=== PATIENT | female | born 1930 | race Caucasian/White ===

== ENCOUNTER 2017-10-02 18:04 | Emergency (ER) | payer OTHER ==
[~2017-10-02] VITALS: Ht 152.4 cm; Wt 82.1 kg
[~2017-10-02 18:04] MED LIST: AMI200 PO; FLOEARD RIGHT EYE; LEVA1.25 NEB; LIP20 PO; PRO40 PO
[2017-10-02 18:05] VITALS: BP_SYST 159
[2017-10-02 18:50] VITALS: BP_SYST 159
== END 2017-10-02 18:50 | disposition home or self-care (01) ==
LOC: SED 18:04
DX: L30.4 Erythema intertrigo (principal); I48.91 Unspecified atrial fibrillation; J44.9 Chronic obstructive pulmonary disease, unspecified; K21.9 Gastro-esophageal reflux disease without esophagitis; I10 Essential (primary) hypertension; E78.00 Pure hypercholesterolemia, unspecified; Z79.899 Other long term (current) drug therapy
CPT/HCPCS: 99283

== ENCOUNTER 2019-07-14 09:05 | Inpatient (IN) | payer OTHER ==
[~2019-07-14] VITALS: Ht 152.4 cm; Wt 70.3 kg
[~2019-07-14 09:05] MED LIST changes: -LEVA1.25 NEB; +LEVA1.2527 NEB
[2019-07-14 09:12] VITALS: BP_SYST 108
[2019-07-14] MEDS ORDERED: ONDANSETRON HCL 4 MG/2 ML VIAL IVP ONE (09:30)
[2019-07-14] MEDS ORDERED: ALBUTEROL SULFATE 0.083% 2.5 MG/3 ML VIAL.NEB INH ONE (09:30)
[2019-07-14] MEDS ORDERED: IPRATROPIUM BROM 0.5 MG/2.5 ML VIAL.NEB (ATROVENT) INH ONE (09:30)
[2019-07-14] MEDS ORDERED: NACL 0.9% 1,000 ML IV ONE (09:30)
[2019-07-14 10:28] LABS: BASOPHILS % (AUTO) 0.4 % (0.0-2.0); EOSINOPHILS % (AUTO) 0.3 % (0.0-4.0); HEMATOCRIT 44.5 % (36-48); HEMOGLOBIN 14.6 g/dL (12.0-16.0); LYMPHOCYTES # (AUTO) 0.8 K/uL (1.0-5.5); LYMPHOCYTES % (AUTO) 12.2 % (20.5-51.5); MEAN CORPUSCULAR HEMOGLOBIN 30 pg (27-31); MEAN CORPUSCULAR HGB CONC 33 % (32-36); MEAN CORPUSCULAR VOLUME 91 fL (79.0-98.0); MONOCYTES # (AUTO) 0.7 K/uL (0.0-1.0); MONOCYTES % (AUTO) 10.4 % (1.7-9.3); NEUTROPHILS # (AUTO) 5.3 K/uL (1.8-7.7); NEUTROPHILS % (AUTO) 76.7 % (40.0-70.0); PLATELET COUNT (AUTO) 160 K/uL (130-430); RED BLOOD CELL COUNT(AUTO) 4.88 MIL/uL (4.2-6.2); RED CELL DISTRIBUTION WIDTH 13.9 % (9.0-15.0); WHITE BLOOD COUNT (AUTO) 6.9 K/uL (4.8-10.8)
[2019-07-14 10:43] LABS: ANION GAP 10 (5-15); CALCIUM 8.2 mg/dL (8.4-11.0); CHLORIDE 96 mmol/L (98-107); CREATININE 1.15 mg/dL (0.55-1.30); GLUCOSE 71 mg/dL (70-99); POTASSIUM 4.2 mmol/L (3.5-5.1); SODIUM SERUM 132 mmol/L (136-145); UREA NITROGEN, BLOOD 20 mg/dL (8-21)
[2019-07-14 10:48] LABS: ALANINE AMINOTRANSFERASE 17 U/L (12-78); ALBUMIN 2.9 g/dL (3.4-4.8); ASPARTATE AMINOTRANSFERASE 12 U/L (10-37); TOTAL BILIRUBIN 0.7 mg/dL (0.0-1.0)
[2019-07-14 11:52] LABS: BILIRUBIN,URINE NEGATIVE (NEGATIVE); BLOOD, URINE NEGATIVE (NEGATIVE); CLARITY/URINE CLEAR (CLEAR); COLOR,URINE YELLOW (YELLOW); GLUCOSE,URINE NEGATIVE (NEGATIVE); KETONES,URINE NEGATIVE (NEGATIVE); LEUKOCYTE ESTERASE ,URINE NEGATIVE (NEGATIVE); NITRITE, URINE NEGATIVE (NEGATIVE); PROTEIN URINE NEGATIVE (NEGATIVE); UROBILINOGEN,URINE 0.2 (0.2-1.0)
[2019-07-14] MEDS ORDERED: OSELTAMIVIR PHOSPHATE 75 MG CAPSULE PO ONE (12:45)
[2019-07-14 14:00] VITALS: BP_SYST 170
[2019-07-14 17:30] VITALS: BP_SYST 156
[2019-07-14] MEDS ORDERED: ALBUTEROL SULFATE 0.083% 2.5 MG/3 ML VIAL.NEB INH PRN (19:00)
[2019-07-14] MEDS ORDERED: IPRATROPIUM BROM 0.5 MG/2.5 ML VIAL.NEB (ATROVENT) INH PRN (19:00)
[2019-07-14] MEDS ORDERED: AMIODARONE HCL 200 MG TABLET PO ONE (19:00)
[2019-07-14] MEDS: ALBUTEROL SULFATE 0.083% 2.5 MG/3 ML VIAL.NEB INH SCH (19:22)
[2019-07-14] MEDS: IPRATROPIUM BROM 0.5 MG/2.5 ML VIAL.NEB (ATROVENT) INH SCH (19:22)
[2019-07-14 20:00] VITALS: BP_SYST 149
[2019-07-14] MEDS: cefTRIAXone 1 GM in D5W 50 ML IV SCH (20:14)
[2019-07-14] MEDS: ATORVASTATIN 20 MG TABLET PO SCH (20:45)
[2019-07-14] MEDS: AZITHROMYCIN 500 MG in NS 250 ML IV SCH (20:45)
[2019-07-14] MEDS: OSELTAMIVIR PHOSPHATE 75 MG CAPSULE PO SCH (20:45)
[2019-07-14 20:47] VITALS: BP_SYST 146
[2019-07-14] MEDS: HEPARIN SODIUM,PORCINE 5000 UNITS/ML VIAL SUBCUT SCH (20:47)
[2019-07-14] MEDS ORDERED: ASPI-1153 PO (22:23)
[2019-07-14] MEDS ORDERED: LOSA50TA3 PO (22:23)
[2019-07-14] MEDS ORDERED: PENT400T17 PO (22:23)
[2019-07-15 00:41] VITALS: BP_SYST 149
[2019-07-15] MEDS: IPRATROPIUM BROM 0.5 MG/2.5 ML VIAL.NEB (ATROVENT) INH SCH ×4 (01:00→19:20)
[2019-07-15] MEDS: ALBUTEROL SULFATE 0.083% 2.5 MG/3 ML VIAL.NEB INH SCH ×4 (01:00→19:20)
[2019-07-15 07:55] VITALS: BP_SYST 125
[2019-07-15] MEDS ORDERED: PANTOPRAZOLE SODIUM 40 MG TAB PO SCH (09:00)
[2019-07-15] MEDS: PANTOPRAZOLE SODIUM 40 MG TAB PO SCH (09:33)
[2019-07-15] MEDS: OSELTAMIVIR PHOSPHATE 75 MG CAPSULE PO SCH ×2 (09:33→22:57)
[2019-07-15] MEDS: AMIODARONE HCL 200 MG TABLET PO SCH (09:34)
[2019-07-15] MEDS: HEPARIN SODIUM,PORCINE 5000 UNITS/ML VIAL SUBCUT SCH ×2 (09:36→22:59)
[2019-07-15 12:00] VITALS: BP_SYST 148
[2019-07-15] MEDS: ACETAMINOPHEN 325 MG TABLET PO PRN ×3 (12:08→23:01)
[2019-07-15 16:00] VITALS: BP_SYST 142
[2019-07-15] MEDS: cefTRIAXone 1 GM in D5W 50 ML IV SCH (18:31)
[2019-07-15 20:05] VITALS: BP_SYST 144
[2019-07-15] MEDS: AZITHROMYCIN 500 MG in NS 250 ML IV SCH (22:57)
[2019-07-15] MEDS: ATORVASTATIN 20 MG TABLET PO SCH (22:57)
[2019-07-16 01:08] VITALS: BP_SYST 162
[2019-07-16] MEDS: ALBUTEROL SULFATE 0.083% 2.5 MG/3 ML VIAL.NEB INH SCH ×4 (02:08→19:55)
[2019-07-16] MEDS: IPRATROPIUM BROM 0.5 MG/2.5 ML VIAL.NEB (ATROVENT) INH SCH ×4 (02:08→19:55)
[2019-07-16 07:22] LABS: ANION GAP 5 (5-15); CALCIUM 8.6 mg/dL (8.4-11.0); CHLORIDE 101 mmol/L (98-107); CREATININE 1.07 mg/dL (0.55-1.30); GLUCOSE 79 mg/dL (70-99); POTASSIUM 3.6 mmol/L (3.5-5.1); SODIUM SERUM 137 mmol/L (136-145); UREA NITROGEN, BLOOD 15 mg/dL (8-21)
[2019-07-16 07:26] LABS: BASOPHILS % (AUTO) 0.5 % (0.0-2.0); EOSINOPHILS # (AUTO) 0.1 K/uL (0.0-0.4); EOSINOPHILS % (AUTO) 1.8 % (0.0-4.0); HEMATOCRIT 43.6 % (36-48); HEMOGLOBIN 14.5 g/dL (12.0-16.0); LYMPHOCYTES # (AUTO) 0.7 K/uL (1.0-5.5); LYMPHOCYTES % (AUTO) 20.4 % (20.5-51.5); MEAN CORPUSCULAR HEMOGLOBIN 30 pg (27-31); MEAN CORPUSCULAR HGB CONC 33 % (32-36); MEAN CORPUSCULAR VOLUME 91 fL (79.0-98.0); MONOCYTES # (AUTO) 0.6 K/uL (0.0-1.0); NEUTROPHILS # (AUTO) 2.1 K/uL (1.8-7.7); NEUTROPHILS % (AUTO) 60.3 % (40.0-70.0); PLATELET COUNT (AUTO) 160 K/uL (130-430); RED CELL DISTRIBUTION WIDTH 13.9 % (9.0-15.0); WHITE BLOOD COUNT (AUTO) 3.5 K/uL (4.8-10.8)
[2019-07-16 07:46] VITALS: BP_SYST 162
[2019-07-16] MEDS: OSELTAMIVIR PHOSPHATE 75 MG CAPSULE PO SCH ×2 (09:12→20:35)
[2019-07-16] MEDS: AMIODARONE HCL 200 MG TABLET PO SCH (09:13)
[2019-07-16] MEDS: PANTOPRAZOLE SODIUM 40 MG TAB PO SCH (09:13)
[2019-07-16] MEDS: HEPARIN SODIUM,PORCINE 5000 UNITS/ML VIAL SUBCUT SCH ×2 (09:15→20:38)
[2019-07-16] MEDS ORDERED: HYDROcodone/ACETAMIN 5-325 MG TAB (NORCO/ VICODIN) PO PRN (12:00)
[2019-07-16 12:26] VITALS: BP_SYST 148
[2019-07-16] MEDS: ONDANSETRON HCL 4 MG/2 ML VIAL IVP PRN (14:25)
[2019-07-16 16:30] VITALS: BP_SYST 149
[2019-07-16] MEDS: cefTRIAXone 1 GM in D5W 50 ML IV SCH (18:32)
[2019-07-16 20:32] VITALS: BP_SYST 149
[2019-07-16] MEDS: AZITHROMYCIN 500 MG in NS 250 ML IV SCH (20:34)
[2019-07-16] MEDS: ATORVASTATIN 20 MG TABLET PO SCH (20:35)
[2019-07-16] MEDS: ACETAMINOPHEN 325 MG TABLET PO PRN (20:35)
[2019-07-17] MEDS: ALBUTEROL SULFATE 0.083% 2.5 MG/3 ML VIAL.NEB INH SCH ×4 (01:15→19:43)
[2019-07-17] MEDS: IPRATROPIUM BROM 0.5 MG/2.5 ML VIAL.NEB (ATROVENT) INH SCH ×4 (01:15→19:43)
[2019-07-17 02:30] VITALS: BP_SYST 145
[2019-07-17 07:13] VITALS: BP_SYST 197
[2019-07-17 07:26] LABS: BASOPHILS % (AUTO) 0.7 % (0.0-2.0); EOSINOPHILS # (AUTO) 0.1 K/uL (0.0-0.4); HEMATOCRIT 42.4 % (36-48); HEMOGLOBIN 14.3 g/dL (12.0-16.0); LYMPHOCYTES % (AUTO) 27.8 % (20.5-51.5); MEAN CORPUSCULAR HEMOGLOBIN 30 pg (27-31); MEAN CORPUSCULAR HGB CONC 34 % (32-36); MEAN CORPUSCULAR VOLUME 90 fL (79.0-98.0); MONOCYTES # (AUTO) 0.6 K/uL (0.0-1.0); MONOCYTES % (AUTO) 15.3 % (1.7-9.3); NEUTROPHILS % (AUTO) 53.2 % (40.0-70.0); PLATELET COUNT (AUTO) 158 K/uL (130-430); RED CELL DISTRIBUTION WIDTH 13.8 % (9.0-15.0); WHITE BLOOD COUNT (AUTO) 3.7 K/uL (4.8-10.8)
[2019-07-17 07:39] LABS: ALANINE AMINOTRANSFERASE 21 U/L (12-78); ALBUMIN 2.8 g/dL (3.4-4.8); ANION GAP 7 (5-15); ASPARTATE AMINOTRANSFERASE 11 U/L (10-37); CALCIUM 8.2 mg/dL (8.4-11.0); CHLORIDE 96 mmol/L (98-107); CREATININE 0.94 mg/dL (0.55-1.30); GLUCOSE 81 mg/dL (70-99); POTASSIUM 3.4 mmol/L (3.5-5.1); SODIUM SERUM 129 mmol/L (136-145); TOTAL BILIRUBIN 0.4 mg/dL (0.0-1.0); UREA NITROGEN, BLOOD 17 mg/dL (8-21)
[2019-07-17 07:54] VITALS: BP_SYST 197
[2019-07-17] MEDS: OSELTAMIVIR PHOSPHATE 75 MG CAPSULE PO SCH ×2 (08:57→20:59)
[2019-07-17] MEDS: PANTOPRAZOLE SODIUM 40 MG TAB PO SCH (08:57)
[2019-07-17] MEDS: AMIODARONE HCL 200 MG TABLET PO SCH (08:57)
[2019-07-17] MEDS: HEPARIN SODIUM,PORCINE 5000 UNITS/ML VIAL SUBCUT SCH ×2 (08:58→21:01)
[2019-07-17] MEDS: ONDANSETRON HCL 4 MG/2 ML VIAL IVP PRN (10:54)
[2019-07-17 12:20] VITALS: BP_SYST 175
[2019-07-17] MEDS: ENALAPRILAT DIHYDRATE 1.25 MG/ML VIAL IVP PRN ×2 (13:06→21:00)
[2019-07-17 15:57] VITALS: BP_SYST 156
[2019-07-17] MEDS: cefTRIAXone 1 GM in D5W 50 ML IV SCH (18:08)
[2019-07-17 20:00] VITALS: BP_SYST 177
[2019-07-17] MEDS: AZITHROMYCIN 500 MG in NS 250 ML IV SCH (20:00)
[2019-07-17] MEDS: ATORVASTATIN 20 MG TABLET PO SCH (20:59)
[2019-07-18] VITALS: BP_SYST 168
[2019-07-18] MEDS ORDERED: hydrALAZINE HCL 20 MG/ML VIAL IVP ONE (00:15)
[2019-07-18] MEDS: ALBUTEROL SULFATE 0.083% 2.5 MG/3 ML VIAL.NEB INH SCH ×4 (01:00→19:53)
[2019-07-18] MEDS: IPRATROPIUM BROM 0.5 MG/2.5 ML VIAL.NEB (ATROVENT) INH SCH ×4 (01:00→19:53)
[2019-07-18 01:10] VITALS: BP_SYST 139
[2019-07-18] MEDS: ONDANSETRON HCL 4 MG/2 ML VIAL IVP PRN ×2 (01:20→09:06)
[2019-07-18 08:00] VITALS: BP_SYST 183
[2019-07-18] MEDS ORDERED: POTASSIUM CHLORIDE 20 MEQ/PKT PACKET PO ONE (08:00)
[2019-07-18] MEDS: PANTOPRAZOLE SODIUM 40 MG TAB PO SCH (08:42)
[2019-07-18] MEDS: OSELTAMIVIR PHOSPHATE 75 MG CAPSULE PO SCH ×2 (08:42→22:05)
[2019-07-18] MEDS: TRIAMTERENE/HYDROCHLOROTHIAZID 1 CAP CAPSULE (DYAZIDE37.5/25) PO SCH (08:42)
[2019-07-18] MEDS: LISINOPRIL 10 MG TABLET (PRINIVIL) PO SCH (08:42)
[2019-07-18] MEDS: PREDNISONE 20 MG TABLET PO SCH (08:42)
[2019-07-18] MEDS: AMIODARONE HCL 200 MG TABLET PO SCH (08:43)
[2019-07-18] MEDS: HEPARIN SODIUM,PORCINE 5000 UNITS/ML VIAL SUBCUT SCH ×2 (08:45→22:05)
[2019-07-18] MEDS ORDERED: BUDESONIDE/FORMOTEROL 160-4.5 mCg, 6 GM INHALER INH SCH (09:00)
[2019-07-18] MEDS ORDERED: BUDESONIDE 0.5 MG/2 ML AMPUL.NEB INH ONE (09:00)
[2019-07-18 11:14] VITALS: BP_SYST 142
[2019-07-18 15:22] VITALS: BP_SYST 151
[2019-07-18] MEDS: cefTRIAXone 1 GM in D5W 50 ML IV SCH (18:03)
[2019-07-18 20:00] VITALS: BP_SYST 130
[2019-07-18] MEDS: BUDESONIDE 0.5 MG/2 ML AMPUL.NEB INH SCH (20:12)
[2019-07-18] MEDS: ATORVASTATIN 20 MG TABLET PO SCH (22:05)
[2019-07-18] MEDS: AZITHROMYCIN 500 MG in NS 250 ML IV SCH (22:06)
[2019-07-19] VITALS (7 sets, daily range): BP systolic 143–176
[2019-07-19] MEDS: ALBUTEROL SULFATE 0.083% 2.5 MG/3 ML VIAL.NEB INH SCH ×4 (01:00→19:19)
[2019-07-19] MEDS: IPRATROPIUM BROM 0.5 MG/2.5 ML VIAL.NEB (ATROVENT) INH SCH ×4 (01:00→19:19)
[2019-07-19 06:54] LABS: BASOPHILS % (AUTO) 0.6 % (0.0-2.0); EOSINOPHILS % (AUTO) 0.8 % (0.0-4.0); HEMOGLOBIN 14.7 g/dL (12.0-16.0); LYMPHOCYTES # (AUTO) 1.5 K/uL (1.0-5.5); MEAN CORPUSCULAR HEMOGLOBIN 30 pg (27-31); MEAN CORPUSCULAR HGB CONC 33 % (32-36); MEAN CORPUSCULAR VOLUME 90 fL (79.0-98.0); MONOCYTES # (AUTO) 0.7 K/uL (0.0-1.0); MONOCYTES % (AUTO) 13.9 % (1.7-9.3); NEUTROPHILS # (AUTO) 2.4 K/uL (1.8-7.7); NEUTROPHILS % (AUTO) 51.7 % (40.0-70.0); PLATELET COUNT (AUTO) 186 K/uL (130-430); RED BLOOD CELL COUNT(AUTO) 4.89 MIL/uL (4.2-6.2); RED CELL DISTRIBUTION WIDTH 13.8 % (9.0-15.0); WHITE BLOOD COUNT (AUTO) 4.7 K/uL (4.8-10.8)
[2019-07-19] MEDS: BUDESONIDE 0.5 MG/2 ML AMPUL.NEB INH SCH ×2 (07:27→19:38)
[2019-07-19 07:36] LABS: ALANINE AMINOTRANSFERASE 20 U/L (12-78); ALBUMIN 3.1 g/dL (3.4-4.8); ANION GAP 4 (5-15); ASPARTATE AMINOTRANSFERASE 12 U/L (10-37); CALCIUM 9.4 mg/dL (8.4-11.0); CHLORIDE 93 mmol/L (98-107); CREATININE 1.01 mg/dL (0.55-1.30); GLUCOSE 89 mg/dL (70-99); POTASSIUM 4.1 mmol/L (3.5-5.1); SODIUM SERUM 128 mmol/L (136-145); TOTAL BILIRUBIN 0.6 mg/dL (0.0-1.0); UREA NITROGEN, BLOOD 17 mg/dL (8-21)
[2019-07-19] MEDS ORDERED: LEVO500T89 PO (08:56)
[2019-07-19] MEDS ORDERED: LACT1CAP72 PO (08:56)
[2019-07-19] MEDS ORDERED: BUDE6HFA INH (08:56)
[2019-07-19] MEDS: HEPARIN SODIUM,PORCINE 5000 UNITS/ML VIAL SUBCUT SCH ×2 (09:00→21:46)
[2019-07-19] MEDS: TRIAMTERENE/HYDROCHLOROTHIAZID 1 CAP CAPSULE (DYAZIDE37.5/25) PO SCH (09:44)
[2019-07-19] MEDS: OSELTAMIVIR PHOSPHATE 75 MG CAPSULE PO SCH (09:45)
[2019-07-19] MEDS: PANTOPRAZOLE SODIUM 40 MG TAB PO SCH (09:45)
[2019-07-19] MEDS: PREDNISONE 20 MG TABLET PO SCH (09:45)
[2019-07-19] MEDS: LISINOPRIL 10 MG TABLET (PRINIVIL) PO SCH (09:45)
[2019-07-19] MEDS: AMIODARONE HCL 200 MG TABLET PO SCH (09:47)
[2019-07-19] MEDS ORDERED: MED4 PO (10:12)
[2019-07-19] MEDS ORDERED: FURO-150 PO (10:13)
[2019-07-19] MEDS: ONDANSETRON HCL 4 MG/2 ML VIAL IVP PRN (13:19)
[2019-07-19] MEDS: cefTRIAXone 1 GM in D5W 50 ML IV SCH (18:14)
[2019-07-19] MEDS: ATORVASTATIN 20 MG TABLET PO SCH (21:42)
[2019-07-19] MEDS: ACETAMINOPHEN 325 MG TABLET PO PRN (21:43)
[2019-07-20 01:00] VITALS: BP_SYST 159
[2019-07-20] MEDS: IPRATROPIUM BROM 0.5 MG/2.5 ML VIAL.NEB (ATROVENT) INH SCH ×4 (01:30→20:06)
[2019-07-20] MEDS: ALBUTEROL SULFATE 0.083% 2.5 MG/3 ML VIAL.NEB INH SCH ×4 (01:30→20:06)
[2019-07-20] MEDS: ENALAPRILAT DIHYDRATE 1.25 MG/ML VIAL IVP PRN ×2 (01:45→20:48)
[2019-07-20] MEDS: BUDESONIDE 0.5 MG/2 ML AMPUL.NEB INH SCH ×2 (07:27→20:21)
[2019-07-20 08:07] VITALS: BP_SYST 174
[2019-07-20] MEDS: ONDANSETRON HCL 4 MG/2 ML VIAL IVP PRN ×2 (08:46→16:32)
[2019-07-20] MEDS: PREDNISONE 20 MG TABLET PO SCH (08:50)
[2019-07-20] MEDS: TRIAMTERENE/HYDROCHLOROTHIAZID 1 CAP CAPSULE (DYAZIDE37.5/25) PO SCH (08:51)
[2019-07-20] MEDS: PANTOPRAZOLE SODIUM 40 MG TAB PO SCH (08:51)
[2019-07-20] MEDS: LISINOPRIL 10 MG TABLET (PRINIVIL) PO SCH (08:52)
[2019-07-20] MEDS: HEPARIN SODIUM,PORCINE 5000 UNITS/ML VIAL SUBCUT SCH ×2 (08:54→20:49)
[2019-07-20] MEDS: AMIODARONE HCL 200 MG TABLET PO SCH (09:01)
[2019-07-20 09:55] VITALS: BP_SYST 133
[2019-07-20 13:20] VITALS: BP_SYST 165
[2019-07-20 15:33] VITALS: BP_SYST 134
[2019-07-20 20:00] VITALS: BP_SYST 171
[2019-07-20] MEDS: cefTRIAXone 1 GM in D5W 50 ML IV SCH (20:42)
[2019-07-20] MEDS: ATORVASTATIN 20 MG TABLET PO SCH (20:47)
[2019-07-21 01:07] VITALS: BP_SYST 154
[2019-07-21 08:00] VITALS: BP_SYST 138
[2019-07-21] MEDS: BUDESONIDE 0.5 MG/2 ML AMPUL.NEB INH SCH (08:00)
[2019-07-21] MEDS: LISINOPRIL 10 MG TABLET (PRINIVIL) PO SCH (08:08)
[2019-07-21] MEDS: PREDNISONE 20 MG TABLET PO SCH (08:08)
[2019-07-21] MEDS: TRIAMTERENE/HYDROCHLOROTHIAZID 1 CAP CAPSULE (DYAZIDE37.5/25) PO SCH (08:09)
[2019-07-21] MEDS: PANTOPRAZOLE SODIUM 40 MG TAB PO SCH (08:09)
[2019-07-21] MEDS: AMIODARONE HCL 200 MG TABLET PO SCH (08:09)
[2019-07-21] MEDS: HEPARIN SODIUM,PORCINE 5000 UNITS/ML VIAL SUBCUT SCH (08:12)
[2019-07-21 12:18] VITALS: BP_SYST 138
[2019-07-21] MEDS: IPRATROPIUM BROM 0.5 MG/2.5 ML VIAL.NEB (ATROVENT) INH SCH (14:04)
[2019-07-21] MEDS: ALBUTEROL SULFATE 0.083% 2.5 MG/3 ML VIAL.NEB INH SCH (14:04)
[2019-07-21 16:00] VITALS: BP_SYST 118
[2019-07-21 16:14] VITALS: BP_SYST 118
== END 2019-07-21 18:10 | DRG 193 ==
LOC: SED 09:05 → STU 13:20 → SMU 07-15 11:17
PROVIDERS: ADMIT Internal Medicine Hospice and Palliative Medicine; ATTEND Internal Medicine Hospice and Palliative Medicine
DX: J10.00 Influenza due to other identified influenza virus with unspecified type of pneumonia (principal); J96.20 Acute and chronic respiratory failure, unspecified whether with hypoxia or hypercapnia; J44.0 Chronic obstructive pulmonary disease with (acute) lower respiratory infection; I48.20 Chronic atrial fibrillation, unspecified; J44.1 Chronic obstructive pulmonary disease with (acute) exacerbation; E11.51 Type 2 diabetes mellitus with diabetic peripheral angiopathy without gangrene; F03.90 Unspecified dementia, unspecified severity, without behavioral disturbance, psychotic disturbance, mood disturbance, and anxiety; M19.90 Unspecified osteoarthritis, unspecified site; K21.9 Gastro-esophageal reflux disease without esophagitis; I11.9 Hypertensive heart disease without heart failure; E86.0 Dehydration; I25.10 Atherosclerotic heart disease of native coronary artery without angina pectoris; J20.9 Acute bronchitis, unspecified; Z86.718 Personal history of other venous thrombosis and embolism; Z86.73 Personal history of transient ischemic attack (TIA), and cerebral infarction without residual deficits; Z87.891 Personal history of nicotine dependence; Z95.0 Presence of cardiac pacemaker; Z79.899 Other long term (current) drug therapy; Z90.49 Acquired absence of other specified parts of digestive tract
CPT/HCPCS: 36415; 36600; 71045; 72192-TC; 80048; 80053; 81003; 82803-TC; 83605; 83735-TC; 84484; 85025; 86710; 87040-TC; 87086; 93005; 93970; 94010; 94640; 94668; 94760; 96361; 96365; 96375; 97110-GP; 97112-GP; 97116-GP; 97530-GP; 99285; G0378; G9035; J0360; J0456; J0696; J1644; J1956; J2405; J7050; J7060; J7512; J7613; J7626

== ENCOUNTER 2020-05-04 23:21 | Emergency (ER) | payer OTHER ==
[~2020-05-04] VITALS: Ht 167.6 cm; Wt 74.8 kg
[~2020-05-04 23:21] MED LIST changes: +ASPI-1393 PO; +BUDE6HFA INH; +FURO-150 PO; +LACT1CAP72 PO; +LEVO500T89 PO; +LOSA50TA3 PO; +MED4 PO; +PENT400T17 PO
[2020-05-04 23:26] VITALS: BP_SYST 193
[2020-05-04] MEDS ORDERED: ACETAMINOPHEN 500 MG TABLET PO ONE (23:45)
--- NOTE | 2020-05-05 00:23 | NUR ---
Patient to ER bed 5 to gown for evaluation. Side rails up. Report given to GUADALUPE.
--- NOTE | 2020-05-05 00:45 | NUR ---
ER Dr. Gonzalez at bedside examining patient.
--- NOTE | 2020-05-05 01:00 | NUR ---
Pt BIBA S/P non mechanical fall. Pt was walking with her walker, became dizzy and fall. Fall unwitnessed and unable to determine if LOC occured. Pt denies any Cp, SOB, N/V or any other symptoms at this time. Will continue to monitor.
--- NOTE | 2020-05-05 01:56 | NUR ---
Called family for a ride.
[2020-05-05 02:19] VITALS: BP_SYST 128
--- NOTE | 2020-05-05 02:30 | NUR ---
Patient given written and verbal discharge instructions and verbalizes understanding. ER MD discussed with patient the results and treatment provided. Patient in stable condition. ID arm band removed. Patient educated on pain management and to follow up with PMD. Pain Scale 0/10. Opportunity for questions provided and answered. Medication side effect fact sheet provided.
== END 2020-05-05 02:30 | disposition home or self-care (01) ==
LOC: SED 23:21
DX: S00.03XA Contusion of scalp, initial encounter (principal); M25.561 Pain in right knee; M25.562 Pain in left knee; I10 Essential (primary) hypertension; K21.9 Gastro-esophageal reflux disease without esophagitis; I48.91 Unspecified atrial fibrillation; Z79.82 Long term (current) use of aspirin; Z79.899 Other long term (current) drug therapy; W18.39XA Other fall on same level, initial encounter; Y93.89 Activity, other specified; Y92.89 Other specified places as the place of occurrence of the external cause; Y99.8 Other external cause status
CPT/HCPCS: 70450-TC; 76376; 93005; 99284